=== PATIENT | female | born 1970 | race Caucasian/White ===

== ENCOUNTER 2020-11-13 07:27 | Day surgery (SDC) | payer BC, MEDICAID ==
[~2020-11-13 07:27] MED LIST: LOSARTAN POTASS25 MG PO; LOSARTAN/HCT1 TA1 PO; METOPROL TAR25 MG PO; VITAMIN D PO; [UNRECOGNIZED DRUG - OTHER] PO
[2020-11-13 09:33] VITALS: BP 134/69
== END 2020-11-13 09:50 | disposition home or self-care (01) | DRG 951 ==
LOC: ENDO 07:27
PROVIDERS: ATTEND Surgery
PROC: 0DBN8ZX Excision of Sigmoid Colon, Via Natural or Artificial Opening Endoscopic, Diagnostic (ICD-10-PCS; principal; 2020-11-13)
DX: Z12.11 Encounter for screening for malignant neoplasm of colon (principal); K63.5 Polyp of colon; K57.30 Diverticulosis of large intestine without perforation or abscess without bleeding; K64.8 Other hemorrhoids; I10 Essential (primary) hypertension; E11.9 Type 2 diabetes mellitus without complications